=== PATIENT | male | born 1965 | race Caucasian/White ===

== ENCOUNTER 2016-10-08 13:09 | Emergency (ER) | payer OTHER ==
[~2016-10-08] VITALS: Ht 182.9 cm; Wt 100.0 kg
[~2016-10-08 13:09] MED LIST: LIPI80TA PO; LISI10TA3 PO; PAXI20TA PO; SERO300T PO
[2016-10-08 13:11] VITALS: BP 179/107; PULSE 84; RESP 20; TEMP 97.7; O2SAT 99
--- NOTE | 2016-10-08 13:23 | PD ---
HPI Chief Complaint: Fall Time Seen by Provider: 13:23 Travel History International Travel<30 days: No Contact w/Intl Traveler<30days: No Traveled to known affect area: No History of Present Illness HPI 51-year-old male presents to our department status post fall in his apartment 2 nights ago. Patient has not sought medical attention for this prior to this visit. Patient now coming in with complaints of right wrist pain , and facial pain and ache. Patient also has pain in the right anterior lateral rib. Patient denies neck pain, and denies loss of consciousness, but he can't be sure. Patient also has superficial abrasion to the left posterior elbow. Patient states it's been taking aspirin for his headache pain. Patient states his right wrist pain and rib pain is worse today. Patient also complains of worsening facial pain. Patient denies nausea, vomiting, dizziness. Patient has no known drug allergies. 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) Immunizations Current: No Past Surgical History Other Surgery: Yes (LUMBAR INJECTIONS FIVE TIMES RECENTLY) Social History Alcohol Use: No Tobacco Use: Yes (07/26 PPD) Substance Use: No Allergies-Medications (Allergen,Severity, Reaction): Coded Allergies: No Known Allergies (Verified , 06/24/16) Reported Meds & Prescriptions Reported Meds & Active Scripts Active Ibuprofen 600 Mg Tab 600 Mg PO Q6H PRN Lortab (Hydrocodone-Acetaminophen) 5-325 Mg Tab 1-2 Tab PO Q6H PRN Lisinopril 10 Mg Tab 10 Mg PO DAILY Lipitor (Atorvastatin Calcium) 80 Mg Tab 80 Mg PO HS Reported Seroquel (Quetiapine Fumarate) 300 Mg Tab 300 Mg PO HS Paxil (Paroxetine HCl) 20 Mg Tab 20 Mg PO HS Review of Systems Except as stated in HPI: all other systems reviewed are Neg General / Constitutional: No: Fever Eyes: No: Visual changes HENT: Positive: Headaches, Congestion, Nosebleed, Other (facial pain.), No: Lightheadedness, Sore Throat, Rhinitis, Rhinorrhea, Neck Stiffness, Neck Pain Cardiovascular: No: Chest Pain or Discomfort Respiratory: No: Shortness of Breath Gastrointestinal: No: Abdominal Pain Genitourinary: No: Dysuria Musculoskeletal: No: Pain Skin: No Rash Neurologic: No: Weakness Psychiatric: No: Depression Endocrine: No: Polydipsia Hematologic/Lymphatic: No: Easy Bruising Physical Exam Narrative GENERAL: Patient appears in mild distress. SKIN: Warm and dry. Normal color. Normal turgor. Patient has superficial healing abrasion to the left posterior elbow without signs of infection. Patient has bilateral black eyes with moderate periorbital swelling bilaterally , more on the right than the left.. HEAD: Atraumatic. Normocephalic. Patient is tenderness on the bridge of the nose as well as along the right brow without open wound or laceration. EYES: Pupils equal and round. No scleral icterus. No injection or drainage. Patient has bilateral ecchymosis and edema to the upper and lower lids greater on the right than the left. ENT: No nasal bleeding or discharge. Mucous membranes pink and moist. No dental injury is appreciated. Pharynx is clear. Airway is patent. NECK: Trachea midline. No bony tenderness or step-off. Range of motion is full and supple. CARDIOVASCULAR: Regular rate and rhythm. No murmurs gallops or rubs appreciated. RESPIRATORY: No accessory muscle use. Clear to auscultation. Breath sounds equal bilaterally. Patient has moderate point tenderness at the right lower anterior lateral thorax along the T9 rib. No obvious deformity, crepitus, or subcutaneous emphysema noted. GASTROINTESTINAL: Abdomen soft, non-tender, nondistended. Hepatic and splenic margins not palpable. MUSCULOSKELETAL: Extremities without clubbing, cyanosis, or edema. No obvious deformities. NEUROLOGICAL: Awake and alert. No obvious cranial nerve deficits. Motor grossly within normal limits. Five out of 5 muscle strength in the arms and legs. Normal speech. PSYCHIATRIC: Appropriate mood and affect; insight and judgment normal. Data Data Last Documented VS Vital Signs Date Time Temp Pulse Resp B/P Pulse Ox O2 Delivery O2 Flow Rate FiO2 10/08/16 13:11 97.7 84 20 179/[address] Brain W/O Iv Contrast(Rout) (10/08/16 13:27) Ct Facial Bones W/O Iv Cont (10/08/16 13:27) Wrist, Complete ([id number]) (10/08/16 13:27) Ice/Cold Pack (10/08/16 13:27) Ribs, Uni (W/Exp Cxr-Min 3vw) (10/08/16 13:27) Acetamin-Hydrocod 325-5 Mg ([place] 5-325 (10/08/16 13:30) Splinting (10/08/16 ) Sling Cradle Arm (10/08/16 ) MDM Medical Decision Making Medical Screen Exam Complete: Yes Emergency Medical Condition: Yes Differential Diagnosis Fall. Facial contusion. Facial fracture. Right wrist sprain. Right wrist fracture. Rib fracture. Thorax contusion. Narrative Course Patient appears medically stable at time of exam. Right rib x-ray and chest x-ray is ordered as well as right wrist films. CT of the head and facial bones are ordered. Patient is given Lortab 5/[address] of the head shows no intracranial abnormality or skull fracture. Per radiologist. CT facial bones shows a nasal fracture but otherwise no other significant fracture of the facial bones. Per radiologist. X-ray of the wrist shows a nondisplaced fracture of the distal radius per radiologist. X-ray of chest shows 2 nondisplaced fractures of the right anterior lateral seventh and eighth ribs per radiologist. No pneumothorax is noted. Patient is placed in a sugar tong splint for the right arm fracture. As well as sling. Patient is given a prescription for ibuprofen 600 mg 4 times a day #40. Patient is given Lortab 5/325 one every 6 hours when necessary pain #20. Patient is encouraged to use ice frequently to all the above issues. Patient is to maintain the splint and sling until seen by orthopedic. Patient is to call Dr. Ann the orthopedic on-call for follow-up appointment in the next 2 weeks. Diagnosis Primary Impression: Right wrist fracture Qualified Code: S62.101A - Right wrist fracture, closed, initial encounter Additional Impressions: Right rib fracture Qualified Code: S22.41XA - Closed fracture of multiple ribs of right side, initial encounter Nasal bone fracture Qualified Code: S02.2XXA - Closed fracture of nasal bone, initial encounter Contusion of face Qualified Code: S00.83XA - Contusion of face, initial encounter Referrals: Ernesto Ann MD Patient Instructions: General Instructions, How to Use a Sling (GEN), Narcotic given in the ED, Nasal Fracture (ED), Rib Fracture (DC), Splint Care (DC), Wrist Fracture in Adults (ED) Additional Instructions: CT of the head shows no intracranial abnormality or skull fracture. Per radiologist. CT facial bones shows a nasal fracture but otherwise no other significant fracture of the facial bones. Per radiologist. X-ray of the wrist shows a nondisplaced fracture of the distal radius per radiologist. X-ray of chest shows 2 nondisplaced fractures of the right anterior lateral seventh and eighth ribs per radiologist. No pneumothorax is noted. Patient is placed in a sugar tong splint for the right arm fracture. As well as sling. Patient is given a prescription for ibuprofen 600 mg 4 times a day #40. Patient is given Lortab 5/325 one every 6 hours when necessary pain #20. Patient is encouraged to use ice frequently to all the above issues. Patient is to maintain the splint and sling until seen by orthopedic. Patient is to call Dr. Ann the orthopedic on-call for follow-up appointment in the next 2 weeks. Med/Other Pt SpecificInfo: Prescription(s) given Scripts Ibuprofen 600 Mg [id number] Mg PO Q6H PRN (Pain/Inflammation) #40 TAB Prov:Cherelle Fraser MD 10/08/16 Hydrocodone-Acetaminophen (Lortab)5-325 Mg Tab1-2 Tab PO Q6H PRN (PAIN) #20 TAB Prov:Cherelle Fraser MD 10/08/16 Disposition: 01 DISCHARGE HOME Condition: Stable Jose Francisco Carias Oct 08, 2016 13:23
[2016-10-08] MEDS ORDERED: ACETAMINOPHEN/HYDROcodone 325 MG/5 MG TAB PO ONE (13:30)
--- NOTE | 2016-10-08 14:06 | RADRPT ---
EXAM DATE/TIME: 10/08/2016 13:52 [facility] COMPARISON: No previous studies available for comparison. INDICATIONS : Fall 2 days ago. Worsening facial pain. Bruising to both eyes. RADIATION DOSE: 39.97 CTDIvol (mGy) MEDICAL HISTORY : Seizures. Hypertension. SURGICAL HISTORY : Cardiac catherization. ENCOUNTER: Initial ACUITY: 2 days PAIN SCALE: 6/10 LOCATION: cranial TECHNIQUE: Multiple contiguous axial images were obtained of the head. Using automated exposure control and adj ustment of the mA and/or kV according to patient size, radiation dose was kept as low as reasonably a chievable to obtain optimal diagnostic quality images. FINDINGS: CEREBRUM: The ventricles are normal for age. No evidence of midline shift, mass lesion, hemorrhage or acute in farction. No extra-axial fluid collections are seen. POSTERIOR FOSSA: The cerebellum and brainstem are intact. The 4th ventricle is midline. The cerebellopontine angle i s unremarkable. EXTRACRANIAL: The visualized portion of the orbits is intact. SKULL: Soft tissue swelling over the right orbit without fracture. CONCLUSION: Negative for acute intracranial process. Vinny Ramirez MD FACR on October 08, 2016 at 14:04 Board Certified Radiologist. This report was verified electronically.
--- NOTE | 2016-10-08 14:08 | RADRPT ---
EXAM DATE/TIME: 10/08/2016 13:46 [facility] COMPARISON: No previous studies available for comparison. INDICATIONS : Trauma, Fall down stairs in apartment MEDICAL HISTORY : None. SURGICAL HISTORY : None. ENCOUNTER: Initial ACUITY: 1 day PAIN SCORE: 8/10 LOCATION: Right Wrist FINDINGS: A nondisplaced fracture extending through the radial styloid into the articulate surface of the radiu s is noted. Metacarpal and is well-preserved. Articular soft tissue swelling is noted. CONCLUSION: Distal right radial nondisplaced fracture extending through the radial styloid into the articulate reece rface of the radiocarpal joint. Nicholas Hatfield MD on October 08, 2016 at 14:04 Board Certified Radiologist. This report was verified electronically.
--- NOTE | 2016-10-08 14:10 | RADRPT ---
EXAM DATE/TIME: 10/08/2016 13:46 [facility] COMPARISON: No previous studies available for comparison. INDICATIONS : Trauma, Patient fell down stairs in apartment. MEDICAL HISTORY : Hypertension. SURGICAL HISTORY : None. ENCOUNTER: Initial ACUITY: 1 day PAIN SCORE: 8/10 LOCATION: Right Ribs FINDINGS: Multiple views of the right ribs were performed. Nondisplaced fractures are identified along the ante rolateral margin of the right sixth and seventh ribs. No destructive lesions or areas of periosteal thickening are seen. Expiratory view of the chest is negative for pneumothorax. The mediastinal str uctures are midline. CONCLUSION: Nondisplaced fractures of the right sixth and seventh ribs. No evidence of pneumothorax or acute air space disease. Nicholas Hatfield MD on October 08, 2016 at 14:06 Board Certified Radiologist. This report was verified electronically.
--- NOTE | 2016-10-08 14:14 | RADRPT ---
EXAM DATE/TIME: 10/08/2016 13:52 [facility] COMPARISON: No previous studies available for comparison. INDICATIONS : Fall 2 days ago. Worsening facial pain. Bruising to both eyes. RADIATION DOSE: 55.94 CTDIvol (mGy) MEDICAL HISTORY : Seizures. Hypertension. SURGICAL HISTORY : Cardiac catherization. ENCOUNTER: Initial ACUITY: 2 days PAIN SCORE: 6/10 LOCATION: Bilateral facial TECHNIQUE: Volumetric scanning of the facial bones was performed. Using automated exposure control and adjustme nt of the mA and/or kV according to patient size, radiation dose was kept as low as reasonably achiev able to obtain optimal diagnostic quality images. FINDINGS: ORBITS: Significant right-sided periorbital and infraorbital soft tissue swelling is noted. The orbital and i nfraorbital osseous structures are intact. The retroconal structures have a normal configuration. N o radiopaque foreign bodies are seen. NASAL BONE: A mildly depressed fracture is seen of the nasal bone. ZYGOMATIC ARCHES: Symmetric without evidence of fracture. SINUSES: The maxillary, ethmoid and frontal sinuses are intact. No air-fluid levels seen. NASAL CAVITY: The nasal septum is intact and midline. The lacrimal ducts are intact. SOFT TISSUES: No radiopaque foreign bodies seen. No other soft-tissue swelling is seen. INTRACRANIAL: No intracranial air seen. CRIBIFORM PLATE: Grossly intact. CONCLUSION: Right periorbital and infraorbital soft tissue swelling without evidence of orbital fracture. Mildly depressed nasal bone fracture. No other significant abnormality. Nicholas Hatfield MD on October 08, 2016 at 14:09 Board Certified Radiologist. This report was verified electronically.
[2016-10-08] MEDS ORDERED: HYDR-3533 PO (14:18)
[2016-10-08] MEDS ORDERED: IBUP-232 PO (14:18)
--- NOTE | 2016-10-08 14:48 | PD ---
Data Data Last Documented VS Vital Signs Date Time Temp Pulse Resp B/P Pulse Ox O2 Delivery O2 Flow Rate FiO2 10/08/16 13:11 97.7 84 20 179/[address] Brain W/O Iv Contrast(Rout) (10/08/16 13:27) Ct Facial Bones W/O Iv Cont (10/08/16 13:27) Wrist, Complete ([id number]) (10/08/16 13:27) Ice/Cold Pack (10/08/16 13:27) Ribs, Uni (W/Exp Cxr-Min 3vw) (10/08/16 13:27) Acetamin-Hydrocod 325-5 Mg ([place] 5-325 (10/08/16 13:30) Splinting (10/08/16 ) Sling Cradle Arm (10/08/16 ) MDM Supervised Visit with JOSE: Yes Narrative Course I, Dr. Fraser, have reviewed the advance practice practioner's documentation and am in agreement, met with the patient face to face, made the diagnosis, and the medical decision making was done by me. *My assessment and Findings: 51-year-old male here with complaint of rib pain, nasal pain and wrist pain after fall 2 days ago patient tripped, mechanical. On exam patient has bilateral periorbital ecchymosis and tenderness to palpation of the nasal bridge. Extraocular movements are intact. No spinal tenderness. Patient has tenderness to palpation of the ribs on the right but breath sounds are clear. He has some deformity to the right wrist albeit minimal with ecchymosis. X-ray of the right wrist shows distal radius fracture , nondisplaced. This was placed in splint beautifully by our kind orthopedic technicians. X-rays of the ribs showed nondisplaced fractures of the sixth and seventh rib on the right but no hemothorax. CT of the brain was negative. CT of the facial bones shows no evidence of orbital fracture but patient does have nasal bone fracture that is mildly depressed. Patient was treated with analgesics and will be discharged home with outpatient orthopedic follow-up. Diagnosis Primary Impression: Right wrist fracture Qualified Code: S62.101A - Right wrist fracture, closed, initial encounter Additional Impressions: Nasal bone fracture Qualified Code: S02.2XXA - Closed fracture of nasal bone, initial encounter Right rib fracture Qualified Code: S22.41XA - Closed fracture of multiple ribs of right side, initial encounter Contusion of face Qualified Code: S00.83XA - Contusion of face, initial encounter Referrals: Ernesto Ann MD Patient Instructions: General Instructions, Narcotic given in the ED, Nasal Fracture (ED), Wrist Fracture in Adults (ED), Rib Fracture (DC), How to Use a Sling (GEN), Splint Care (DC) Additional Instruction: CT of the head shows no intracranial abnormality or skull fracture. Per radiologist. CT facial bones shows a nasal fracture but otherwise no other significant fracture of the facial bones. Per radiologist. X-ray of the wrist shows a nondisplaced fracture of the distal radius per radiologist. X-ray of chest shows 2 nondisplaced fractures of the right anterior lateral seventh and eighth ribs per radiologist. No pneumothorax is noted. Patient is placed in a sugar tong splint for the right arm fracture. As well as sling. Patient is given a prescription for ibuprofen 600 mg 4 times a day #40. Patient is given Lortab 5/325 one every 6 hours when necessary pain #20. Patient is encouraged to use ice frequently to all the above issues. Patient is to maintain the splint and sling until seen by orthopedic. Patient is to call Dr. Ann the orthopedic on-call for follow-up appointment in the next 2 weeks. Scripts Ibuprofen 600 Mg [id number] Mg PO Q6H PRN (Pain/Inflammation) #40 TAB Prov:Cherelle Fraser MD 10/08/16 Hydrocodone-Acetaminophen (Lortab)5-325 Mg Tab1-2 Tab PO Q6H PRN (PAIN) #20 TAB Prov:Cherelle Fraser MD 10/08/16 Disposition: 01 DISCHARGE HOME Condition: Stable Cherelle Fraser MD Oct 08, 2016 14:48
[2016-10-26] MEDS ORDERED: LISI10TA3 PO (14:34)
[2016-10-26] MEDS ORDERED: ROBA750T PO (14:38)
[2016-10-26] MEDS ORDERED: IBUP800T23 PO (14:38)
[2016-10-26] MEDS ORDERED: KETO60IN6 IM (14:38)
[2016-10-26] MEDS ORDERED: METH125I2 IM (14:41)
[2016-11-30] MEDS ORDERED: IBUP800T23 PO (14:50)
[2016-11-30] MEDS ORDERED: LISI-515 PO (14:50)
[2016-11-30] MEDS ORDERED: LIPI80TA PO (14:50)
[2016-11-30] MEDS ORDERED: ROBA750T PO (14:50)
[2016-11-30] MEDS ORDERED: METF500T PO (14:50)
== END 2016-10-08 15:06 | disposition home or self-care (01) ==
LOC: NEPE 13:09
DX: S52.501A Unspecified fracture of the lower end of right radius, initial encounter for closed fracture (principal); S22.41XA Multiple fractures of ribs, right side, initial encounter for closed fracture; S02.2XXA Fracture of nasal bones, initial encounter for closed fracture; I10 Essential (primary) hypertension; F17.210 Nicotine dependence, cigarettes, uncomplicated; W19.XXXA Unspecified fall, initial encounter; Y92.039 Unspecified place in apartment as the place of occurrence of the external cause
CPT/HCPCS: 29125; 70450; 70486; 71101; 73110

== ENCOUNTER 2016-10-12 13:49 | Emergency (ER) | payer OTHER ==
[~2016-10-12] VITALS: Ht 182.9 cm; Wt 96.5 kg
[~2016-10-12 13:49] MED LIST changes: +HYDR-3533 PO; +IBUP-232 PO
[2016-10-12 13:50] VITALS: BP 149/87; PULSE 99; RESP 20; TEMP 98.3; O2SAT 96
[2016-10-12] MEDS ORDERED: PERC5TAB12 PO (14:41)
[2016-10-12] MEDS ORDERED: IBUP800T23 PO (14:50)
--- NOTE | 2016-10-12 14:50 | PD ---
HPI Chief Complaint: Medication Refill Request Time Seen by Provider: 14:44 Travel History International Travel<30 days: No Contact w/Intl Traveler<30days: No Traveled to known affect area: No History of Present Illness HPI Patient is a 51-year-old male presenting to him our for medication refill. Patient states he has 2 rib fractures and a fractured wrist and is out of his pain medication. He reports his pain is a 10 out of 10 and has difficulty sleeping at night. He states that he has been using the ibuprofen as well but does not relieve his symptoms. His breath, chest pain or new physical complaints at this time. 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) Immunizations Current: No Past Surgical History Other Surgery: Yes (LUMBAR INJECTIONS FIVE TIMES RECENTLY) Social History Alcohol Use: No Tobacco Use: Yes (07/26 PPD) Substance Use: No Allergies-Medications (Allergen,Severity, Reaction): Coded Allergies: No Known Allergies (Verified , 06/24/16) Reported Meds & Prescriptions Reported Meds & Active Scripts Active Percocet (Oxycodone-Acetaminophen) 5-325 mg Tab 1 Tab PO Q4H PRN Ibuprofen 600 Mg Tab 600 Mg PO Q6H PRN Lortab (Hydrocodone-Acetaminophen) 5-325 Mg Tab 1-2 Tab PO Q6H PRN Lisinopril 10 Mg Tab 10 Mg PO DAILY Lipitor (Atorvastatin Calcium) 80 Mg Tab 80 Mg PO HS Reported Seroquel (Quetiapine Fumarate) 300 Mg Tab 300 Mg PO HS Paxil (Paroxetine HCl) 20 Mg Tab 20 Mg PO HS Review of Systems Except as stated in HPI: all other systems reviewed are Neg Musculoskeletal: Positive: Myalgias, Pain Physical Exam Narrative GENERAL: Well-nourished, well-developed patient. SKIN: Warm and dry. Ecchymosis around eyes. HEAD: Normocephalic. EYES: No scleral icterus. No injection or drainage. NECK: Supple, trachea midline. No JVD or lymphadenopathy. CARDIOVASCULAR: Regular rate and rhythm without murmurs, gallops, or rubs. RESPIRATORY: Breath sounds equal bilaterally. No accessory muscle use. GASTROINTESTINAL: Abdomen soft, non-tender, nondistended. MUSCULOSKELETAL: No cyanosis, or edema. Left arm in splint. BACK: Nontender without obvious deformity. No CVA tenderness. Data Data Last Documented VS Vital Signs Date Time Temp Pulse Resp B/P Pulse Ox O2 Delivery O2 Flow Rate FiO2 10/12/16 13:50 98.3 99 20 149/87 96 Room Air [facility] Medical Decision Making Medical Screen Exam Complete: Yes Emergency Medical Condition: Yes Interpretation(s) Vital Signs Date Time Temp Pulse Resp B/P Pulse Ox O2 Delivery O2 Flow Rate FiO2 10/12/16 13:50 98.3 99 20 149/87 96 Room Air Differential Diagnosis Fracture versus contusion versus sprain versus strain versus other Narrative Course Patient's 51-year-old male presenting to the emergency department for refill of medication. Patient was prescribed Lortab on October 08 secondary to 2 rib fractures and a wrist fracture that he sustained on 06 October. Patient is followed at the [facility] and states that he is unable to get pain medication from them. Patient has been unable to establish a follow-up appointment with orthopedic surgeon as well. Patient was given an additional short course of oral pain medication after discussion with my attending physician. Patient was also educated on alternative therapies to help alleviate pain. Patient was advised to avoid bed rest, continue deep breathing exercises, and follow up with the [facility]. He was advised to only use the narcotic pain medication at night to help him sleep otherwise he should be using the ibuprofen more often. He verbalized understanding of instructions. Patient was also provided with an incentive spirometer. Patient is stable for discharge. Diagnosis Primary Impression: Encounter for medication refill Additional Impressions: Right rib fracture Qualified Code: S22.41XD - Closed fracture of multiple ribs of right side with routine healing, subsequent encounter Right wrist fracture Qualified Code: S62.101D - Right wrist fracture, with routine healing, subsequent encounter Referrals: Michael Monroe MD,Hector Carter MD [facility] Patient Instructions: General Instructions Additional Instructions: He will need to obtain additional refills from your primary doctor or orthopedic surgeon Return to emergency department for any new or worsening symptoms Follow-up with orthopedic surgeon as previously advised Med/Other Pt SpecificInfo: Prescription(s) given Scripts Ibuprofen 800 Mg [id number] Mg PO Q6HR PRN (PAIN) #40 TAB Ref 0 Prov:Edith Oneil 3/21/17 Oxycodone-Acetaminophen (Percocet)5-325 mg Tab1 Tab PO Q4H PRN (PAIN) #15 TAB Ref 0 Prov:Anurag Ellsworth MD 10/12/16 Disposition: 01 DISCHARGE HOME Condition: Stable Edith Oneil Oct 12, 2016 14:50
[2016-10-26] MEDS ORDERED: LISI10TA3 PO (14:34)
[2016-10-26] MEDS ORDERED: KETO60IN6 IM (14:38)
[2016-10-26] MEDS ORDERED: ROBA750T PO (14:38)
[2016-10-26] MEDS ORDERED: IBUP800T23 PO (14:38)
[2016-10-26] MEDS ORDERED: METH125I2 IM (14:41)
[2016-11-30] MEDS ORDERED: METF500T PO (14:50)
[2016-11-30] MEDS ORDERED: ROBA750T PO (14:50)
[2016-11-30] MEDS ORDERED: IBUP800T23 PO (14:50)
[2016-11-30] MEDS ORDERED: LIPI80TA PO (14:50)
[2016-11-30] MEDS ORDERED: LISI-515 PO (14:50)
== END 2016-10-12 15:04 | disposition home or self-care (01) ==
LOC: NEPB 13:49
DX: R07.81 Pleurodynia (principal); Z76.0 Encounter for issue of repeat prescription
CPT/HCPCS: 94150; 99281

== ENCOUNTER → 2016-11-29 | Outpatient (CLI) | payer OTHER ==
[~2016-11-29] MED LIST changes: -HYDR-3533 PO; -IBUP-232 PO; +IBUP800T23 PO; +LISI-515 PO; +METF500T PO; +ROBA750T PO
[2016-11-29 12:25] LABS: HEMATOCRIT 42.7 % (39.0-51.0); MEAN CELL VOLUME 89.9 FL (80.0-100.0); MEAN CORPUSCULAR HEMOGLOBIN 30.6 PG (27.0-34.0); PLATELET COUNT 384 TH/MM3 (150-450); RED BLOOD COUNT 4.75 MIL/MM3 (4.50-5.90); RED CELL DISTRIBUTION WIDTH 13.5 % (11.6-17.2); REVIEW FLAG FINAL
[2016-11-29 13:12] LABS: ALKALINE PHOSPHATASE 67 U/L (45-117); ALT (GPT) 19 U/L (12-78); ANION GAP 5 MEQ/L (5-15); AST (GOT) 16 U/L (15-37); BICARBONATE 27.6 MEQ/L (21.0-32.0); BLOOD UREA NITROGEN 7 MG/DL (7-18); CHLORIDE 106 MEQ/L (98-107); GLOMERULAR FILTRATION RATE 76 ML/MIN (>89); GLUCOSE,FASTING 135 MG/DL (74-99); HDL CHOLESTEROL 36.1 MG/DL (40.0-60.0); LDL CHOLESTEROL 128 MG/DL (0-99); POTASSIUM 4.2 MEQ/L (3.5-5.1); SODIUM (NA) 139 MEQ/L (136-145); TOTAL BILIRUBIN ADULT 0.4 MG/DL (0.2-1.0)
== END ==
LOC: CLAB 12:04
PROVIDERS: ATTEND Family Medicine
DX: E78.5 Hyperlipidemia, unspecified (principal)
CPT/HCPCS: 36415; 80053; 80061; 84443; 85027

== ENCOUNTER → 2017-03-01 | Outpatient (CLI) | payer OTHER ==
[~2017-03-01] MED LIST changes: -LISI10TA3 PO; +PARO20TA2 PO
[2017-03-01 15:09] LABS: HDL CHOLESTEROL 52.5 MG/DL (40.0-60.0); LDL CHOLESTEROL 126 MG/DL (0-99)
[2017-03-01 17:11] LABS: HEMOGLOBIN A1a 1.2 %; HEMOGLOBIN A1b 2.1 %; HEMOGLOBIN Ao 82.5 %; HEMOGLOBIN LA1C 2.3 %; HEMOGLOBIN P3 4.6 %
== END ==
LOC: CLAB 14:31
PROVIDERS: ATTEND Nurse Practitioner Family
DX: E78.5 Hyperlipidemia, unspecified (principal); R39.12 Poor urinary stream; E11.9 Type 2 diabetes mellitus without complications
CPT/HCPCS: 36415; 80061; 83036; 84153; 84154

== ENCOUNTER → 2017-03-18 | Outpatient (CLI) | payer OTHER ==
[~2017-03-18] MED LIST changes: -PAXI20TA PO
--- NOTE | 2017-03-22 11:10 | RSPPFT ---
DATE OF PROCEDURE: 03/18/17 COMMENTS: The forced vital capacity shows a small reduction. The FEV1 is slightly reduced with a normal FEF 25-75. The FEV1/FVC ratio is normal. IMPRESSION: This is compatible with very mild restrictive lung disease.
== END ==
LOC: HRSP 12:55
PROVIDERS: ATTEND Family Medicine
DX: R51 Headache (principal); E11.9 Type 2 diabetes mellitus without complications; F17.200 Nicotine dependence, unspecified, uncomplicated; J98.4 Other disorders of lung
CPT/HCPCS: 94060

== ENCOUNTER 2017-06-14 14:38 | Emergency (ER) | payer OTHER ==
[~2017-06-14] VITALS: Ht 182.9 cm; Wt 99.1 kg
[~2017-06-14 14:38] MED LIST changes: +IBUP1TAB7 PO; -IBUP800T23 PO
[2017-06-14 14:59] VITALS: BP 124/72; PULSE 58; RESP 16; TEMP 98; O2SAT 98
--- NOTE | 2017-06-14 17:15 | PD ---
HPI . Dentalgia Chief Complaint: Oral / Dental Pain or Problem Time Seen by Provider: 16:10 Travel History International Travel<30 days: No Contact w/Intl Traveler<30days: No Traveled to known affect area: No History of Present Illness HPI 52-year-old male patient presents to the emergency department for evaluation of dentalgia times one day. Patient denies any tooth trauma. Patient is a pack-a- day smoker. Patient denies any fevers, chills, malaise, chest pain, shortness breath, nausea, vomiting, diarrhea. History Social History Alcohol Use: No Tobacco Use: Yes (/2 PPD) Allergies-Medications (Allergen,Severity, Reaction): Coded Allergies: No Known Allergies (Verified Adverse Reaction, Unknown, 06/14/17) Reported Meds & Prescriptions Reported Meds & Active Scripts Active Lisinopril 20 Mg Tab 20 Mg PO DAILY Review of Systems Except as stated in HPI: all other systems reviewed are Neg Physical Exam Narrative GENERAL: Well-nourished, well-developed 52-year-old male patient in no acute distress. Nontoxic appearing. SKIN: Focused skin assessment warm/dry. HEAD: Normocephalic. Atraumatic. EYES: No scleral icterus. No injection or drainage. MOUTH: Dentalgia associated with tooth #14. No surrounding gingival erythema, purulent drainage or edema noted. Significant gum recession noted surrounding tooth #14. Mucous membranes moist, no lesions, tongue and gums appear normal. NECK: Supple, trachea midline. No JVD or lymphadenopathy. CARDIOVASCULAR: Regular rate and rhythm without murmurs, gallops, or rubs. RESPIRATORY: Breath sounds equal bilaterally. No accessory muscle use. GASTROINTESTINAL: Abdomen soft, non-tender, nondistended. MUSCULOSKELETAL: No cyanosis, or edema. BACK: Nontender without obvious deformity. No CVA tenderness. Data Data Last Documented VS Vital Signs Date Time Temp Pulse Resp B/P (MAP) Pulse Ox O2 Delivery O2 Flow Rate FiO2 06/14/17 14:59 98.0 58 16 124/72 (89) 98 MDM Medical Screen Exam Complete: Yes Emergency Medical Condition: Yes Differential Diagnosis Differential diagnoses include but not limited to dentalgia, dental caries, gum recession Narrative Course 52-year-old male patient presents emergency department for evaluation of dentalgia at tooth #14 times that started yesterday. Patient denies any fever, chills, chest pain, shortness breath, nausea, vomiting, diarrhea. There is no surrounding gingival erythema or edema or purulent drainage noted. No signs or symptoms of infection at this time. Significant gum recession noted around tooth #14. Patient states the pain is increased with eating hot or cold food. A medical screening exam was performed: At the time of evaluation the presenting medical condition was determined not to be of an emergent nature. The patient was given the option of receiving additional care, but declined. Patient was given options for additional community resources from which to obtain care. The Patient Has Been advised to seek medical attention for their presenting complaint. The patient has been advised to return to the ER at any time if an emergent condition develops. Primary Impression: Encounter for medical screening examination Disposition: 07 EDGO-ED USE ONLY Condition: Stable Emili Lara Jun 14, 2017 17:14
== END 2017-06-14 16:42 | disposition left against medical advice (07) ==
LOC: PHEFT 14:38
DX: K08.89 Other specified disorders of teeth and supporting structures (principal); F17.210 Nicotine dependence, cigarettes, uncomplicated
CPT/HCPCS: 99281